=== PATIENT | male | born 1955 | race Caucasian/White ===

== ENCOUNTER 2024-02-03 17:26 | Emergency (ER) | payer OTHER ==
[2024-02-03 17:53] VITALS: BP 111/65; PULSE 66; RESP 19; TEMP 97.9; BMI 21.2
[2024-02-03] MEDS ORDERED: ACETAMINOPHEN 325 MG TABLET (FP) ONE (20:35)
[2024-02-03] MEDS: ACETAMINOPHEN 325 MG TABLET (FP) PO ONE (20:54)
[2024-02-03 21:08] LABS: HEMATOCRIT 40.8 % (35.4-49); HEMOGLOBIN 13.7 GM/dL (11.7-16.9); LYMPH % 31.3 % (8-40); MCH 29.8 pg (25.7-33.7); MCHC 33.6 g/dl (32.0-35.9); MEAN CELL VOLUME 88.7 fl (80-96); MEAN PLT VOLUME 6.9 fl (7.5-11.1); MONO % 10.2 % (3.8-10.2); NEUT % 55.5 % (42.8-82.8); PLATELET COUNT 409 10^3/uL (134-434); RDW 13.6 % (11.9-15.9); WHITE BLOOD COUNT 6.8 K/mm3 (4.0-10.0)
[2024-02-03 21:18] LABS: INR 0.9 (0.83-1.09); PROTHROMBIN TIME (PATIENT) 10.2 SEC (9.7-13.0)
[2024-02-03 21:21] LABS: ACTIVATED PTT 31.1 SECONDS (25.2-36.5)
[2024-02-03 21:28] LABS: POTASSIUM 4.3 mmol/L (3.5-5.1)
[2024-02-03 21:30] LABS: CALCIUM 9.2 mg/dL (8.5-10.1)
[2024-02-03 21:31] LABS: ALBUMIN 3.7 g/dl (3.4-5.0); BLOOD UREA NITROGEN 27.9 mg/dL (7-18)
[2024-02-03 21:34] LABS: CREATININE 0.7 mg/dL (0.55-1.3)
[2024-02-03 21:35] LABS: BILIRUBIN,TOTAL 0.4 mg/dL (0.2-1); TOT PROT 6.3 g/dl (6.4-8.2)
[2024-02-04] MEDS ORDERED: POLYETHYLENE GLYCOL (HEALTHYLAX) 3350 17 GM PACKET ONE (00:10)
[2024-02-04] MEDS: POLYETHYLENE GLYCOL (HEALTHYLAX) 3350 17 GM PACKET PO ONE (00:23)
== END 2024-02-04 00:23 | disposition home or self-care (01) ==
LOC: JER 17:26
DX: K59.00 Constipation, unspecified (principal); R07.89 Other chest pain; W19.XXXA Unspecified fall, initial encounter; Y93.01 Activity, walking, marching and hiking
CPT/HCPCS: 36415; 71046-TC-FY; 72170-TC-FY; 74177-TC; 80053; 82272; 84484; 85025; 85610; 85730; 86850; 86900; 86901; 99285-25; Q9967

== ENCOUNTER 2024-02-20 17:59 | Emergency (ER) | payer OTHER ==
[2024-02-20 18:12] VITALS: BP 125/84; PULSE 78; RESP 18; TEMP 97.6; BMI 22.1
[2024-02-20] MEDS ORDERED: IBUPROFEN 600 MG TABLET (FP) PO ONE (21:28)
[2024-02-20] MEDS: IBUPROFEN 600 MG TABLET (FP) PO ONE (21:30)
[2024-02-20] MEDS ORDERED: LIDOCAINE HCL 2% (20ML MULTI-DOSE VIAL) ONE (21:33)
[2024-02-20] MEDS: LIDOCAINE 1.5%-EPINEPHRINE 1:200,000/PF 30 ML VIAL IJ ONE (21:40)
== END 2024-02-20 22:52 | disposition home or self-care (01) ==
LOC: JERFT 17:59 → JER 17:59 → JERFT 22:52
PROC: 0PSPXZZ Reposition Right Metacarpal, External Approach (ICD-10-PCS; principal; 2024-02-20)
DX: S63.260A Dislocation of metacarpophalangeal joint of right index finger, initial encounter (principal); S00.11XA Contusion of right eyelid and periocular area, initial encounter; W03.XXXA Other fall on same level due to collision with another person, initial encounter; Y92.410 Unspecified street and highway as the place of occurrence of the external cause
CPT/HCPCS: 70450-TC; 72125-TC; 73090-TC-RT-FY; 73130-TC-RT-FY; 73140-TC-RT-FY; 99284-25

== ENCOUNTER 2024-04-06 19:16 | Emergency (ER) | payer OTHER ==
[2024-04-06 19:23] VITALS: BP 122/82; PULSE 61; RESP 20; TEMP 97.8; BMI 20.6
[2024-04-06] MEDS: TETRACAINE 0.5% HCL 0.6ML DROPPER.BOTTLE OD ONE (20:26)
[2024-04-06] MEDS: FLUORESCEIN NA 1 EA STRIP OD ONE (20:26)
[2024-04-06] MEDS: ACETAMINOPHEN 325 MG TABLET (FP) PO ONE (20:27)
== END 2024-04-06 22:11 | disposition home or self-care (01) ==
LOC: JER 19:16 → JERFT 19:16
DX: S05.10XA Contusion of eyeball and orbital tissues, unspecified eye, initial encounter (principal); G44.319 Acute post-traumatic headache, not intractable; Y04.2XXA Assault by strike against or bumped into by another person, initial encounter
CPT/HCPCS: 70450-TC; 70480-TC; 99284-25